=== PATIENT | female | born 1975 | race African-American/Black ===

== ENCOUNTER 2017-04-07 16:15 | Outpatient (CLI) | payer MEDICAID, OTHER | END 2017-04-07 16:16 | disposition home or self-care (01) | LOC: BICMAMMO 16:15 | PROVIDERS: ATTEND Internal Medicine | DX: Z12.31 Encounter for screening mammogram for malignant neoplasm of breast (principal) | CPT/HCPCS: 77067; G0202 ==

== ENCOUNTER → 2017-05-22 | Day surgery (SDC) | payer BC, MEDICAID | LOC: BICULT 14:01 | PROVIDERS: ATTEND Internal Medicine | PROC: 0HBU3ZX Excision of Left Breast, Percutaneous Approach, Diagnostic (ICD-10-PCS; principal; 2017-05-22) | DX: D24.2 Benign neoplasm of left breast (principal) | CPT/HCPCS: 19083; 88305; G0206-LT; G0279 ==

== ENCOUNTER 2018-03-26 06:29 | Outpatient (CLI) | payer BC ==
--- NOTE | 2018-03-26 10:30 | ULT ---
PELVIC ULTRASOUND WITH DOPPLER: (Transabdominal, transvaginal, Adhikari scale, color flow, and spectral Doppler images) Date: 03/26/18 HISTORY: Abnormal uterine bleeding. FINDINGS: The uterus measures 13.7 x 6.7 x 6.8 cm. Multiple masses consistent with fibroids are present, the la rgest measuring 5.3 cm. The endometrium measures 8.0 mm in thickness. No endometrial fluid is seen. The right ovary is not visualized. The left ovary measures 4.3 x 4.0 x 3.8 cm. There is a 3.2 cm cyst in the left ovary. Flow is demonstrated to the left ovary. No free fluid is seen in the cul-de-sac. Nabothian cysts are present in the cervix. IMPRESSION: 1. Uterine fibroids. 3. 3.2 cm left ovarian cyst. POS: JENNIFER
== END 2018-03-26 06:30 | disposition home or self-care (01) ==
LOC: BICULT 06:29
PROVIDERS: ATTEND Nurse Practitioner Family
DX: N93.9 Abnormal uterine and vaginal bleeding, unspecified (principal); D25.9 Leiomyoma of uterus, unspecified; N83.202 Unspecified ovarian cyst, left side
CPT/HCPCS: 76856

== ENCOUNTER 2018-06-14 12:57 | Outpatient (CLI) | payer BC | END 2018-06-14 12:58 | disposition home or self-care (01) | LOC: BICMAMMO 12:57 | PROVIDERS: ATTEND Emergency Medicine | DX: Z12.31 Encounter for screening mammogram for malignant neoplasm of breast (principal); N63.20 Unspecified lump in the left breast, unspecified quadrant; Z80.3 Family history of malignant neoplasm of breast | CPT/HCPCS: 77063; 77067 ==

== ENCOUNTER 2019-07-05 07:51 | Outpatient (CLI) | payer BC ==
--- NOTE | 2019-07-05 08:34 | MMO ---
Bilateral MAMMO Bilat Screen [facility]. CLINICAL HISTORY: Patient is 43 years old and is seen for screening. The patient has no family history of breast cancer. The patient has no personal history of cancer. The patient has a history of left Ultrasound Guided Core Biopsy in April,. VIEWS: The views performed were: bilateral craniocaudal with tomosynthesis and bilateral mediolateral oblique with tomosynthesis. FILMS COMPARED: The present examination has been compared to prior imaging studies performed at [facility] on 04/07/2017, 04/30/2017 and 06/14/2018. This study has been interpreted with the assistance of computer-aided detection. MAMMOGRAM FINDINGS: There are scattered fibroglandular densities. Finding 1: There is a stable lobular mass with circumscribed margins and associated biopsy clip seen in the inner region of the left breast. Finding 2: There are stable benign appearing calcifications seen in both breasts. There are no suspicious masses, suspicious calcifications, or new areas of architectural distortion. IMPRESSION: THERE IS NO MAMMOGRAPHIC EVIDENCE OF MALIGNANCY. A ROUTINE FOLLOW-UP MAMMOGRAM IN 1 YEAR IS RECOMMENDED. THE RESULTS OF THIS EXAM WERE SENT TO THE PATIENT. ACR BI-RADS Category 2 - Benign finding MAMMOGRAPHY NOTE: 1. A negative mammogram report should not delay a biopsy if a dominant of clinically suspicious mass is present. 2. Approximately 10% to 15% of breast cancers are not detected by mammography. 3. Adenosis and dense breasts may obscure an underlying neoplasm. Reported by: ACACIA BEE MD Electonically Signed: [id number]
== END 2019-07-05 07:52 | disposition home or self-care (01) ==
LOC: BICMAMMO 07:51
PROVIDERS: ATTEND Physician Assistant
DX: Z12.31 Encounter for screening mammogram for malignant neoplasm of breast (principal)
CPT/HCPCS: 77063; 77067

== ENCOUNTER 2020-05-11 13:57 | Outpatient (CLI) | payer BC ==
--- NOTE | 2020-05-11 14:49 | BD ---
EXAM: DEXA bone density examination HISTORY: 44-year-old osteopenic female for screening COMPARISON: None FINDINGS: L1--bone mineral density 1.175 g/sq cm; T score 1.7 L2--bone mineral density 1.153 g/sq cm; T score 1.1 L3--bone mineral density 1.127 g/sq cm; T score 0.4 L4--bone mineral density 1.131 g/sq cm; T score 0.6 Total L1-L4--bone mineral density 1.144 g/sq cm; T score 0.9 Left femoral neck--bone mineral density0.853; T score 0.0 Total proximal left femur--bone mineral density 1.028; T score 0.7 IMPRESSION: Normal bone density.
== END 2020-05-11 13:58 | disposition home or self-care (01) ==
LOC: BICMAMMO 13:57
PROVIDERS: ATTEND Obstetrics & Gynecology
DX: Z13.820 Encounter for screening for osteoporosis (principal)
CPT/HCPCS: 77080

== ENCOUNTER 2021-03-31 05:06 | Emergency (ER) | payer BC ==
[2021-03-31 06:11] LABS: #Basophils 0.1 thou/uL (0.0-0.2); #Eosinphils 0.3 thou/uL (0.0-0.7); #Monocytes 0.5 thou/uL (0.11-0.59); %Basophils 1.1 % (0.0-1.0); %Eosinophils 2.9 % (0.0-10.0); %Lymphocytes 30.1 % (21.0-51.0); %Monocytes 5.1 % (0.0-10.0); %Neutrophils 60.8 % (42.0-75.0); Hemoglobin 14.6 g/dL (12.0-16.0); Mean Corpuscular HGB CONC 33.9 g/dL (32.0-36.0); Mean Corpuscular Hemoglobin 30.7 pg (27.0-31.0); Mean Corpuscular Volume 90.5 fL (78.0-98.0); Mean Platelet Volume 7.4 fL (7.4-10.4); Platelet Count 293 thou/uL (130-400); RBC Distribution Width 13.1 % (11.5-14.5); Red Blood Cell (RBC) Count 4.75 mill/uL (4.20-5.40); White Blood Cell (WBC) Count 9.9 thou/uL (4.8-10.8)
[2021-03-31 06:16] LABS: BHCG - Serum Negative (NEGATIVE); Pregs Control Background? CLEAR/WHITE (CLR/WHITE); Pregs Control Bar Appear? YES (CONTROL BAR)
[2021-03-31 06:25] LABS: Bilirubin Negative (Negative); Blood, Urine Negative (Negative); Clarity Clear (Clear); Glucose, Urine (Dipstick) Normal (Negative); Ketone, Urine Negative (Negative); Leukocyte Negative Leu/uL (Negative); Nitrite Negative (Negative); Protein, Urine (Dipstick) Negative (Neg-Trace); Urobilinogen Normal mg/dL (Less than 2)
[2021-03-31 06:26] LABS: ALT (SGPT) 14 U/L (8-55); AST (SGOT) 11 U/L (5-34); Albumin 3.9 g/dL (3.5-5.0); Alkaline Phosphatase 79 U/L (40-110); Anion Gap 11 mmol/L (10-20); BUN (Urea Nitrogen) 10 mg/dL (7.0-18.7); Bilirubin, Total 0.2 mg/dL (0.2-1.2); Calc. Creatinine Clearance 0 mL/min (70-130); Calcium 8.9 mg/dL (7.8-10.44); Carbon Dioxide 26 mmol/L (22-29); Chloride 105 mmol/L (98-107); Glucose 114 mg/dL (70-105); Lipase 23 U/L (8-78); Potassium 3.3 mmol/L (3.5-5.1); Protein, Total 6.9 g/dL (6.0-8.3); Sodium 139 mmol/L (136-145)
== END 2021-03-31 07:55 | disposition home or self-care (01) ==
LOC: ERS 05:06
DX: M54.50 Low back pain, unspecified (principal); I10 Essential (primary) hypertension; J45.909 Unspecified asthma, uncomplicated
CPT/HCPCS: 36415; 74176; 80053; 81003; 83690; 84703; 85025; 85379

== ENCOUNTER 2021-04-29 13:49 | Outpatient (CLI) | payer BC | END 2021-04-29 13:50 | disposition home or self-care (01) | LOC: BICMAMMO 13:49 | PROVIDERS: ATTEND Family Medicine | DX: Z12.31 Encounter for screening mammogram for malignant neoplasm of breast (principal) | CPT/HCPCS: 77063; 77067 ==

== ENCOUNTER 2022-05-19 12:29 | Outpatient (CLI) | payer BC | END 2022-05-19 12:30 | disposition home or self-care (01) | LOC: BICMAMMO 12:29 | PROVIDERS: ATTEND Physician Assistant | DX: Z12.31 Encounter for screening mammogram for malignant neoplasm of breast (principal); Z80.3 Family history of malignant neoplasm of breast | CPT/HCPCS: 77063; 77067 ==

== ENCOUNTER 2022-12-03 09:35 | Outpatient (CLI) | payer OTHER ==
[2022-12-03] MEDS ORDERED: Magnevist 469MG/ML 20 ML VIAL ONE (09:57)
== END 2022-12-03 09:36 | disposition home or self-care (01) ==
LOC: BICMRI 09:35
PROVIDERS: ATTEND Family Medicine
DX: S09.90XD Unspecified injury of head, subsequent encounter (principal); R90.82 White matter disease, unspecified
CPT/HCPCS: 70553; 82565; A9579

== ENCOUNTER 2023-05-21 15:47 | Outpatient (CLI) | payer BC | END 2023-05-21 15:48 | disposition home or self-care (01) | LOC: BICMAMMO 15:47 | PROVIDERS: ATTEND Physician Assistant | DX: Z12.31 Encounter for screening mammogram for malignant neoplasm of breast (principal); Z80.3 Family history of malignant neoplasm of breast | CPT/HCPCS: 77063; 77067 ==